=== PATIENT | male | born 1940 | race Caucasian/White ===

== ENCOUNTER → 2018-05-09 12:41 | Outpatient (CLI) | payer MEDICARE, SELFPAY ==
[2018-05-09 15:43] LABS: Anion Gap 14.2 mEq/L (5-15); Blood Urea Nitrogen 16 mg/dL (7-18); Calcium 8.7 mg/dL (8.5-10.1); Carbon Dioxide 28 mmol/L (21.0-32.0); Chloride 101 mmol/L (98-107); Cholesterol 239 mg/dL (140-200); Creatinine,Serum 1.14 mg/dL (0.70-1.30); Estimated Glomerular Filt Rate 62 ml/min (>60); GFR (African American) 75 ML/MIN (>60); Glucose 94 mg/dL (74-106); HDL Cholesterol 48 mg/dL (27-67); LDL Cholesterol 166 mg/dL (0-130); Potassium 4.2 mmoL/L (3.5-5.1); Sodium 139 mmol/L (136-145); Triglycerides 125 mg/dL (30-200); VLDL Cholesterol 25 mg/dL (0-40)
== END ==
PROVIDERS: Visit Provider Internal Medicine Adolescent Medicine
DX: I10 Essential (primary) hypertension (principal)
CPT/HCPCS: 36415; 80048; 80061

== ENCOUNTER → 2018-11-07 11:34 | Outpatient (CLI) | payer MEDICARE, SELFPAY | PROVIDERS: PCP Internal Medicine Adolescent Medicine; Visit Provider Internal Medicine Adolescent Medicine | DX: R06.02 Shortness of breath (principal) | CPT/HCPCS: 94060; 94726; 94729 ==

== ENCOUNTER → 2019-06-30 11:16 | Outpatient (CLI) | payer MEDICARE, SELFPAY ==
[2019-06-30 12:07] LABS: Basophils # 0.1 K/mm3 (0-0.2); Basophils % 0.7 % (0.1-2.0); Eosinophils # 0.3 K/mm3 (0.0-0.4); Eosinophils % 4.6 % (0.1-12.0); Hematocrit 35.2 % (42.0-52.0); Hemoglobin 11.4 g/dL (14.1-18.0); Lymphocytes # 1.8 K/mm3 (0.7-4.5); Lymphocytes % 26.3 % (10-50); Mean Corpuscular HGB Conc 32.3 g/dL (31.8-35.4); Mean Corpuscular Hemoglobin 28.4 pg (27.0-31.2); Mean Platelet Volume 7.7 fl (7.4-10.4); Monocytes # 0.4 K/mm3 (0.1-1.0); Monocytes % 5.9 % (1.7-9.3); Neutrophils # 4.4 K/mm3 (1.8-7.8); Neutrophils % 62.5 % (37.0-80.0); Platelet Count 238 K/mm3 (142-424); Red Cell Distribution Width 13.7 % (11.5-17.5)
[2019-06-30 13:17] LABS: Alanine Aminotransferase 8 U/L (12-78); Albumin Level 3.8 g/dl (3.5-5.0); Albumin/Globulin Ratio 1.3 (1.1-1.8); Alkaline Phosphatase 72 U/L (38-126); Anion Gap 9.5 mEq/L (5-15); Aspartate Amino Transferase 17 U/L (17-59); Bilirubin,Total 0.2 mg/dl (0.2-1.3); Blood Urea Nitrogen 18 mg/dl (9-20); Calcium 9.1 mg/dl (8.4-10.2); Carbon Dioxide 29 mmol/L (22.0-30.0); Chloride 103 mmol/L (98-107); Chol/HDL Ratio 2.8 (1-3.5); Cholesterol 119 mg/dl (140-200); Estimated Glomerular Filt Rate 53 ml/min (>60); GFR (African American) 64 ML/MIN (>60); Globulin 2.9 g/dL (1.3-3.2); Glucose 95 mg/dl (74-100); HDL Cholesterol 42 mg/dl (40-60); Potassium 4.5 mmoL/L (3.5-5.1); Sodium 137 mmol/L (136-145); Total Protein,Serum 6.7 g/dl (6.3-8.2); Triglycerides 117 mg/dl (30-150); VLDL Cholesterol 23 mg/dL (0-40)
== END ==
PROVIDERS: Visit Provider Internal Medicine Adolescent Medicine
DX: I10 Essential (primary) hypertension (principal)
CPT/HCPCS: 36415; 80053; 80061; 85025

== ENCOUNTER → 2021-01-31 10:06 | Outpatient (CLI) | payer MEDICARE, SELFPAY ==
[2021-01-31 10:26] LABS: Basophils % 0.5 % (0.1-2.0); Eosinophils # 0.4 K/mm3 (0.0-0.4); Eosinophils % 5.4 % (0.1-12.0); Hemoglobin 12.3 g/dL (14.1-18.0); Lymphocytes % 26.5 % (10-50); Mean Corpuscular HGB Conc 32.3 g/dL (31.8-35.4); Mean Corpuscular Hemoglobin 29.2 pg (27.0-31.2); Mean Corpuscular Volume 90.5 fl (80-94); Mean Platelet Volume 8.8 fl (7.4-10.4); Monocytes # 0.4 K/mm3 (0.1-1.0); Monocytes % 5.5 % (1.7-9.3); Neutrophils # 4.7 K/mm3 (1.8-7.8); Neutrophils % 62.1 % (37.0-80.0); Platelet Count 228 K/mm3 (142-424); Red Cell Distribution Width 13.7 % (11.5-17.5); White Blood Count 7.6 K/mm3 (4.8-10.8)
[2021-01-31 11:03] LABS: Chloride 107 mmol/L (98-107); Potassium 4.3 mmoL/L (3.5-5.1); Sodium 139 mmol/L (136-145)
[2021-01-31 11:05] LABS: Blood Urea Nitrogen 24 mg/dl (9-20); Estimated Glomerular Filt Rate 53 ml/min (>60); GFR (African American) 64 ML/MIN (>60)
[2021-01-31 11:06] LABS: Anion Gap 10.3 mEq/L (5-15); Calcium 9.3 mg/dl (8.4-10.2); Carbon Dioxide 26 mmol/L (22.0-30.0); Chol/HDL Ratio 3.4 (1-3.5); Cholesterol 136 mg/dl (140-200); Glucose 122 mg/dl (74-100); HDL Cholesterol 40 mg/dl (40-60); Triglycerides 102 mg/dl (30-150); VLDL Cholesterol 20 mg/dL (0-40)
[2021-01-31 11:17] LABS: Direct LDL Cholesterol 74.58 mg/dL (100-129)
== END ==
PROVIDERS: Visit Provider Internal Medicine Adolescent Medicine
DX: E78.01 Familial hypercholesterolemia (principal); I10 Essential (primary) hypertension
CPT/HCPCS: 36415; 80048; 80061; 85025

== ENCOUNTER 2023-05-31 00:46 | Emergency (ER) | payer MEDICARE, SELFPAY ==
--- NOTE | 2023-05-31 00:48 | HMH.EDGENADL ---
Discharge Plan Disposition Patient Disposition: Home, Self-Care Prescriptions Prescriptions: No Action atorvastatin 20 MG tablet 20 mg PO HS carvedilol 12.5 MG tablet 12.5 mg PO BID amlodipine 5 MG tablet 5 mg PO DAILY lisinopril 40 MG tablet 40 mg PO DAILY omeprazole magnesium 20 MG tablet,delayed release (DR/EC) 20 mg PO DAILY Activity Restrictions/Add. Instructions Additional Instructions/Restrictions: Please follow-up with your primary care provider. Please return to the emergency department if you develop any new or worsening symptoms or become concerned for your health. Clinical Impressions Clinical Impression: Acute bronchospasm Discharge ED Provider: Dat [facility] General Adult HPI General Chief complaint: Shortness of Breath/Dyspnea Stated complaint: SOA Time Seen by Provider: 05/31/23 00:48 History of Present Illness HPI narrative: 82-year-old male with history of hypertension presents for shortness of breath. He reports that he was having more difficulty breathing today and then all of a sudden had marked difficulty. EMS reports that they heard significant wheezing on their arrival, they administered him 125 Solu-Medrol, [id number] DuoNebs. By the time of patient arrival, he reports that his breathing feels totally back to normal. He reports that he had asthma as a child and is a former smoker but quit when he was in his late 30s. He does report that he sprayed his house for ants yesterday and that he thinks his symptoms started after he sprayed. He denies any other changes. Denies any recent fever or illness. Denies any chest pain at any time. Related Data Home Medications Medication Instructions Recorded Confirmed amlodipine 5 mg tablet 5 mg PO DAILY bp 09/09/18 09/09/18 atorvastatin 20 mg tablet 20 mg PO HS Cholesterol 09/09/18 09/09/18 carvedilol 12.5 mg tablet 12.5 mg PO BID Heart. 09/09/18 09/09/18 lisinopril 40 mg tablet 40 mg PO DAILY bp 09/09/18 09/09/18 omeprazole magnesium 20 mg 20 mg PO DAILY Heartburn 09/09/18 09/09/18 tablet,delayed release Allergies Allergy/AdvReac Type Severity Reaction Status Date / Time No Known Allergies Allergy Verified 02/03/18 12:59 [facility] Disclaimer: The information contained in this section may have been updated after the patient was seen, as this information can be updated by other users. Social History Smoking Status: Former smoker alcohol intake: never current occupational status: previously employed Travel in the last 8 weeks: None caffeine: No ROS Obtained: Yes All systems reviewed & no additional complaints except as documented Physical Exam General General appearance: alert and in no apparent distress Head Head exam: atraumatic and normocephalic Eye Eye exam: Present normal appearance, PERRL and EOMI ENT ENT exam: Present normal oropharynx and normal external ear exam Neck Neck exam: Present normal inspection and full ROM Chest Chest inspection: Present normal inspection and symmetric chest wall rise; Absent tenderness Respiratory Respiratory exam: Present normal lung sounds bilaterally; Absent respiratory distress Cardiovascular Cardiovascular exam: Present regular rate and normal rhythm Abdominal Exam Abdominal exam: Present soft; Absent distention, tenderness or guarding Extremities Exam Extremities exam: Present normal inspection; Absent edema or joint swelling Back Exam Back exam: Present normal inspection; Absent tenderness Neurological Exam Neurological exam: Present alert and oriented X3; Absent motor sensory deficit Psychiatric Psychiatric exam: Present normal affect and normal mood Skin Skin exam: Present warm, dry and normal color Lymphatic Lymphatic Findings: no adenopathy Medical Decision Making Medical Records Medical records reviewed: Yes I reviewed the patient's medical records. Hardik Inquiry Pt receiving controlled substance: No Hardik was queried for this patient: No Vital Signs: 05/31/23 00:51 Temperature 98.2 F Temperature Source Oral Pulse Rate [Apical] 88 Respiratory Rate 24 Blood Pressure [Right Arm] 127/76 Blood Pressure Mean [Right Arm] 93 Blood Pressure Source [Right Arm] Automatic Cuff Blood Pressure Position [Right Arm] Sitting 02 Sat by Pulse Oximetry 96 Oxygen Delivery Method Room Air Lab Data Lab results reviewed: Yes I reviewed the patient's lab results. Orders (Tests/Meds): ED MEDICATIONS Generic Name Dose Route Start Last Admin Trade Name Freq PRN Reason Stop Dose Admin Albuterol Sulfate 2 puff 05/31/23 02:10 Albuterol-Hfa 90mcg/Puff Inhaler 8gm IH 06/30/23 02:09 Q4HP PRN Shortness Of Breath Miscellaneous 1 unit 05/31/23 02:10 Aerochamber/Optihaler MC 05/31/23 02:11 ONCE ONE ORDERS Category Date Time Status CXR --portable [XR chest portable] Stat Exams 05/31/23 00:49 Completed Medical Decision Narrative: 82-year-old male with history of hypertension presents for shortness of breath and marked wheezing at home per EMS. History was obtained interactive discussion with patient, EMS, chart review. On arrival, patient is [afebrile, hemodynamically stable, satting appropriately, alert, oriented x4, GCS 15], moving all extremities spontaneously. Full physical exam performed and significant for clear lungs bilaterally, no increased work of breathing, normal vital signs. Differential includes but is not limited to bronchospasm secondary to environmental exposure, COPD, asthma, pneumonia, pneumothorax. Patient was given 2 DuoNebs and Solu-Medrol 125 IV by EMS prior to arrival for symptomatic management and correction of underlying abnormalities. Workup initiated including chest x-ray. On re-evaluation, patient [remains afebrile, HD stable satting appropriately on room air. Imaging independently interpreted by me and significant for clear lungs bilaterally without evidence of pneumonia or pneumothorax. See radiology read for full review of final results. Laboratory studies were considered, but deemed unnecessary due to low utility. Given patient history, exam and workup, patient's presentation most likely represents bronchospasm secondary to environmental exposure (patient sprayed for ants yesterday prior to event beginning). Patient was observed for period of time after his last DuoNeb and remained symptom-free. I had extensive discussion with patient regarding his presentation. He was discharged in stable condition with an asthma inhaler to use as needed. Return precautions given. Procedures Risk/Benefits of Procedure(s) Were Explained: Yes Critical Care Critical Care Time Critical Care Time: No
--- NOTE | 2023-05-31 00:49 | XR_ITS ---
PROCEDURE INFORMATION: Exam: XR Chest Exam date and time: 05/31/2023 12:54 AM Age: 82 years old Clinical indication: Shortness of breath and wheezing; Additional info: SOA, wheezing TECHNIQUE: Imaging protocol: Radiologic exam of the chest. Views: 1 view. COMPARISON: CR CXR2V XR chest 2V 02/03/2018 1:00 PM FINDINGS: Lungs: There are significant emphysematous changes. Scarring is noted involving the right upper lobe. Pleural spaces: Unremarkable. No pleural effusion. No pneumothorax. Heart/Mediastinum: Unremarkable. No cardiomegaly. Vasculature: Unremarkable. Bones/joints: Unremarkable. IMPRESSION: No acute findings.
[2023-05-31 00:51] VITALS: BP 127/76; PULSE 88; RESP 24; TEMP 36.8; O2SAT 96; BMI 21.4
--- NOTE | 2023-05-31 00:57 | PC.NURSE ---
No EKG needed per MD
[2023-05-31] MEDS: ALBUTEROL-HFA 90MCG/PUFF INHALER 8GM 2 PUFF IH (02:15)
[2023-05-31] MEDS: AEROCHAMBER/OPTIHALER 1 UNIT MC (02:15)
[2023-05-31 02:25] VITALS: BP 144/81; PULSE 93; RESP 17; TEMP 36.8; O2SAT 95
== END 2023-05-31 02:26 | disposition home or self-care (01) ==
PROVIDERS: Emergency Provider Emergency Medicine
DX: J98.01 Acute bronchospasm (principal); R06.02 Shortness of breath; Z87.891 Personal history of nicotine dependence
CPT/HCPCS: 71045; 99284